=== PATIENT | male | born 1935 | race Caucasian/White ===

== ENCOUNTER 2021-03-15 11:44 | Emergency (ER) | payer MEDICAID, MEDICARE ==
[2021-03-15] MEDS ORDERED: Fentanyl 100 MCG/2 ML VIAL ONE (12:50)
== END 2021-03-15 16:36 | disposition home or self-care (01) ==
LOC: CSHERS 11:44
DX: M51.26 Other intervertebral disc displacement, lumbar region (principal); E78.5 Hyperlipidemia, unspecified; Z87.891 Personal history of nicotine dependence
CPT/HCPCS: 72131; 96372; J3010

== ENCOUNTER 2021-05-06 12:33 | Inpatient (IN) | payer MEDICARE, MEDICAID ==
[2021-05-06 13:20] LABS: Actual Bicarbonate (HCO3v) 23 mEq/L (22-28); Base Excess 0.1 mEq/L (-2.0 to +3.0); Calcium, Ionized (venous) 1.13 mmol/L (1.16-1.32); Chloride (VBG) 104 mmol/L (98-106); Hemoglobin (Hb) 18.2 g/dL (12.6-17.4); Potassium (VBG) 4.11 mmol/L (3.70-5.30); Puncture Site Other Site; Sodium 129.2 mmol/L (133-146); pH (venous) 7.45 (7.32-7.43)
[2021-05-06 13:26] LABS: Hemoglobin 17.1 g/dL (13.5-17.5); MDiff Complete? YES; Mean Corpuscular HGB CONC 32.8 g/dL (32.0-36.0); Mean Corpuscular Hemoglobin 30.9 pg (27.0-33.0); Mean Corpuscular Volume 94.2 fl (81.2-95.1); Mean Platelet Volume 10.2 fl (7.4-10.4); Platelet Count 144 10x3/uL (150-450); RBC Distribution Width 13.7 % (11.5-14.5); Red Blood Cell (RBC) Count 5.54 10x6/uL (4.32-5.72); White Blood Cell (WBC) Count 8.2 10x3/uL (3.5-10.5)
[2021-05-06 13:38] LABS: ALT (SGPT) 24 U/L (8-55); AST (SGOT) 30 U/L (5-34); Albumin 3.6 g/dL (3.4-4.8); Alkaline Phosphatase 98 U/L (40-110); Anion Gap 16 mmol/L (10-20); BUN (Urea Nitrogen) 21 mg/dL (8.4-25.7); Bilirubin, Total 1.4 mg/dL (0.2-1.2); CK (CPK) 17 U/L (30-200); Calc. Creatinine Clearance 0 mL/min (70-130); Calcium 9.2 mg/dL (7.8-10.44); Carbon Dioxide 22 mmol/L (23-31); Chloride 107 mmol/L (98-107); Globulin 3.6 g/dL (2.4-3.5); Glucose 129 mg/dL (83-110); Lipase 13 U/L (8-78); Magnesium 2.1 mg/dL (1.6-2.6); Potassium 4.2 mmol/L (3.5-5.1); Protein, Total 7.2 g/dL (5.8-8.1); Sodium 141 mmol/L (136-145)
[2021-05-06 13:56] LABS: Band 1 % (5-11); Lymphocytes 14 % (21-51); Monocytes 22 % (0-10); Neutrophil 60 % (42-75); Reactive Lymphocytes 3 % (0-10)
[2021-05-06 13:57] LABS: Platelet Morphology Comment Appears Adequate
[2021-05-06 15:15] LABS: SARS-CoV-2 NAA Rapid Test Not Detected (NotDetected)
[2021-05-06 15:52] LABS: Bilirubin Neg (Negative); Blood, Urine 250 (Negative); Clarity Cloudy (Clear); Glucose, Urine (Dipstick) Normal (Negative); Ketone, Urine 5 mg/dL (Negative); Leukocyte 500 (Negative); Nitrite Positive (Negative); Protein, Urine (Dipstick) 100 mg/dl (Neg-Trace); Urobilinogen Normal mg/dL (Less than 2)
[2021-05-06 16:01] LABS: WBC/HPF Greater Than 50 HPF (0-3)
[2021-05-06 16:03] LABS: Bacteria/HPF 3+ HPF (None Seen); Squamous Epithelial 0-3 HPF (0-3); Transitional Epithelial 0-3 HPF (None Seen)
[2021-05-06] MEDS ORDERED: cefTRIAXone\\ROCEPHIN 1 GM VIAL ONE (16:36)
[2021-05-06] MEDS ORDERED: Senokot S 8.6-50 MG TAB PO PRN (18:45)
[2021-05-06] MEDS ORDERED: Ondansetron ODT 4 MG TAB PO PRN (18:45)
[2021-05-06] MEDS ORDERED: hydrALAZINE 20 MG/ML VIAL SLOW IVP PRN (18:55)
[2021-05-06] MEDS ORDERED: Electrolyte Replacement Protocol FS PRN (19:00)
[2021-05-06] MEDS: Donepezil HCl 5 MG TAB PO SCH ×2 (22:00→22:21)
[2021-05-06] MEDS: Enoxaparin Sodium 40 MG/0.4 ML SYRINGE SC SCH (22:00)
[2021-05-06] MEDS: Tamsulosin HCl 0.4 MG CAP PO SCH ×2 (22:00→22:21)
[2021-05-06] MEDS: Divalproex Sodium 125 mg Sprinkle Capsule PO SCH ×2 (22:00→22:18)
[2021-05-07 03:59] LABS: #Eosinphils 0.2 10x3/uL (0.0-0.5); #Monocytes 1.3 10x3/uL (0.0-1.1); #Neutrophils 6.5 10x3/uL (1.5-8.4); %Basophils 0.4 % (0.0-2.0); %Eosinophils 1.9 % (0.0-6.0); %Lymphocytes 11.8 % (18.0-47.0); %Monocytes 14.1 % (0.0-10.0); %Neutrophils 70.8 % (40.0-75.0); Hemoglobin 16.2 g/dL (13.5-17.5); Mean Corpuscular HGB CONC 32.3 g/dL (32.0-36.0); Mean Corpuscular Hemoglobin 30.7 pg (27.0-33.0); Mean Corpuscular Volume 95.1 fl (81.2-95.1); Mean Platelet Volume 10.6 fl (7.4-10.4); Platelet Count 144 10x3/uL (150-450); RBC Distribution Width 13.3 % (11.5-14.5); Red Blood Cell (RBC) Count 5.28 10x6/uL (4.32-5.72); White Blood Cell (WBC) Count 9.2 10x3/uL (3.5-10.5)
[2021-05-07 04:24] LABS: Anion Gap 18 mmol/L (10-20); BUN (Urea Nitrogen) 22 mg/dL (8.4-25.7); Calc. Creatinine Clearance 0 mL/min (70-130); Carbon Dioxide 22 mmol/L (23-31); Chloride 107 mmol/L (98-107); Glucose 125 mg/dL (83-110); Magnesium 2.1 mg/dL (1.6-2.6); Sodium 143 mmol/L (136-145)
[2021-05-07 04:44] VITALS: BMI 30.4
[2021-05-07] MEDS ORDERED: FLU VACC QS2021-22(65YR UP)/PF 240 MCG/0.7 ML SYRINGE IM ONE (05:00)
[2021-05-07] MEDS ORDERED: Sodium Chloride 0.9% 1,000 ML IV SCH (08:30)
[2021-05-07] MEDS: Venlafaxine HCl XR 75 MG CAP PO SCH (09:51)
[2021-05-07] MEDS: Finasteride 5 MG TAB PO SCH (09:51)
[2021-05-07] MEDS: FLUoxetine HCl 20 MG CAP PO SCH (09:51)
[2021-05-07] MEDS: Divalproex Sodium 125 mg Sprinkle Capsule PO SCH ×2 (09:52→20:11)
[2021-05-07] MEDS: Acetaminophen 325 MG TAB PO PRN ×2 (10:34→20:11)
[2021-05-07] MEDS: cefTRIAXone\\ROCEPHIN 1 GM in Sodium Chloride 0.9% 100 ML IVPB SCH (14:29)
[2021-05-07] MEDS ORDERED: Enoxaparin Sodium 40 MG/0.4 ML SYRINGE ONE (19:54)
[2021-05-07] MEDS: Enoxaparin Sodium 40 MG/0.4 ML SYRINGE SC SCH (20:11)
[2021-05-07] MEDS: Tamsulosin HCl 0.4 MG CAP PO SCH (20:11)
[2021-05-07] MEDS: Donepezil HCl 5 MG TAB PO SCH (20:11)
[2021-05-08 03:21] LABS: #Eosinphils 1.3 10x3/uL (0.0-0.5); #Monocytes 1.3 10x3/uL (0.0-1.1); #Neutrophils 10.6 10x3/uL (1.5-8.4); %Basophils 0.3 % (0.0-2.0); %Eosinophils 8.4 % (0.0-6.0); %Lymphocytes 11.1 % (18.0-47.0); %Monocytes 8.6 % (0.0-10.0); Mean Corpuscular HGB CONC 32.5 g/dL (32.0-36.0); Mean Corpuscular Hemoglobin 30.8 pg (27.0-33.0); Mean Corpuscular Volume 94.8 fl (81.2-95.1); Mean Platelet Volume 10.3 fl (7.4-10.4); Platelet Count 156 10x3/uL (150-450); RBC Distribution Width 13.7 % (11.5-14.5); White Blood Cell (WBC) Count 14.9 10x3/uL (3.5-10.5)
[2021-05-08 04:44] LABS: Anion Gap 15 mmol/L (10-20); BUN (Urea Nitrogen) 25 mg/dL (8.4-25.7); Calc. Creatinine Clearance 64 mL/min (70-130); Calcium 8.8 mg/dL (7.8-10.44); Carbon Dioxide 23 mmol/L (23-31); Chloride 109 mmol/L (98-107); Glucose 113 mg/dL (83-110); Potassium 3.5 mmol/L (3.5-5.1); Sodium 143 mmol/L (136-145)
[2021-05-08] MEDS ORDERED: Potassium Chloride 20 MEQ TAB PO SCH (05:15)
[2021-05-08] MEDS: Divalproex Sodium 125 mg Sprinkle Capsule PO SCH ×2 (10:11→20:55)
[2021-05-08] MEDS: Finasteride 5 MG TAB PO SCH (10:12)
[2021-05-08] MEDS: FLUoxetine HCl 20 MG CAP PO SCH (10:12)
[2021-05-08] MEDS: Venlafaxine HCl XR 75 MG CAP PO SCH (10:12)
[2021-05-08] MEDS ORDERED: Pantoprazole 40 MG GRANULES PACKET PER TUBE SCH (12:00)
[2021-05-08 12:40] LABS: Potassium 3.9 mmol/L (3.5-5.1)
[2021-05-08] MEDS: cefTRIAXone\\ROCEPHIN 1 GM in Sodium Chloride 0.9% 100 ML IVPB SCH (14:41)
[2021-05-08] MEDS: Tamsulosin HCl 0.4 MG CAP PO SCH (20:55)
[2021-05-08] MEDS: Donepezil HCl 5 MG TAB PO SCH (20:55)
[2021-05-08] MEDS: Enoxaparin Sodium 40 MG/0.4 ML SYRINGE SC SCH (20:59)
[2021-05-09 04:12] LABS: #Basophils 0.1 10x3/uL (0.0-0.2); #Eosinphils 1.6 10x3/uL (0.0-0.5); #Monocytes 0.9 10x3/uL (0.0-1.1); #Neutrophils 8.1 10x3/uL (1.5-8.4); %Basophils 0.5 % (0.0-2.0); %Eosinophils 12.5 % (0.0-6.0); %Lymphocytes 13.9 % (18.0-47.0); %Monocytes 7.4 % (0.0-10.0); %Neutrophils 64.9 % (40.0-75.0); Hemoglobin 15.4 g/dL (13.5-17.5); Mean Corpuscular HGB CONC 32.1 g/dL (32.0-36.0); Mean Corpuscular Hemoglobin 30.5 pg (27.0-33.0); Mean Platelet Volume 10.5 fl (7.4-10.4); Platelet Count 165 10x3/uL (150-450); RBC Distribution Width 13.6 % (11.5-14.5); Red Blood Cell (RBC) Count 5.05 10x6/uL (4.32-5.72); White Blood Cell (WBC) Count 12.4 10x3/uL (3.5-10.5)
[2021-05-09 04:19] LABS: Anion Gap 14 mmol/L (10-20); BUN (Urea Nitrogen) 25 mg/dL (8.4-25.7); Calc. Creatinine Clearance 65 mL/min (70-130); Calcium 8.7 mg/dL (7.8-10.44); Carbon Dioxide 24 mmol/L (23-31); Chloride 110 mmol/L (98-107); Glucose 112 mg/dL (83-110); Potassium 3.6 mmol/L (3.5-5.1); Sodium 144 mmol/L (136-145)
[2021-05-09] MEDS: FLUoxetine HCl 20 MG CAP PO SCH (09:38)
[2021-05-09] MEDS: Finasteride 5 MG TAB PO SCH (09:38)
[2021-05-09] MEDS: Pantoprazole 40 MG GRANULES PACKET PER TUBE SCH (09:38)
[2021-05-09] MEDS: Divalproex Sodium 125 mg Sprinkle Capsule PO SCH ×2 (09:38→20:15)
[2021-05-09] MEDS: Venlafaxine HCl XR 75 MG CAP PO SCH (09:38)
[2021-05-09] MEDS: cefTRIAXone\\ROCEPHIN 1 GM in Sodium Chloride 0.9% 100 ML IVPB SCH (13:44)
[2021-05-09] MEDS: Donepezil HCl 5 MG TAB PO SCH (20:15)
[2021-05-09] MEDS: Tamsulosin HCl 0.4 MG CAP PO SCH (20:15)
[2021-05-09] MEDS: Enoxaparin Sodium 40 MG/0.4 ML SYRINGE SC SCH (20:15)
[2021-05-10 05:16] LABS: #Basophils 0.1 10x3/uL (0.0-0.2); #Eosinphils 1.6 10x3/uL (0.0-0.5); #Monocytes 0.7 10x3/uL (0.0-1.1); #Neutrophils 7.3 10x3/uL (1.5-8.4); %Basophils 0.6 % (0.0-2.0); %Eosinophils 14.2 % (0.0-6.0); %Lymphocytes 14.3 % (18.0-47.0); %Monocytes 5.9 % (0.0-10.0); %Neutrophils 63.7 % (40.0-75.0); Hemoglobin 15.7 g/dL (13.5-17.5); Mean Corpuscular HGB CONC 32.8 g/dL (32.0-36.0); Mean Corpuscular Hemoglobin 30.7 pg (27.0-33.0); Mean Corpuscular Volume 93.6 fl (81.2-95.1); Mean Platelet Volume 10.4 fl (7.4-10.4); Platelet Count 193 10x3/uL (150-450); RBC Distribution Width 13.5 % (11.5-14.5); Red Blood Cell (RBC) Count 5.12 10x6/uL (4.32-5.72); White Blood Cell (WBC) Count 11.5 10x3/uL (3.5-10.5)
[2021-05-10 05:28] LABS: Anion Gap 13 mmol/L (10-20); BUN (Urea Nitrogen) 27 mg/dL (8.4-25.7); Calc. Creatinine Clearance 76 mL/min (70-130); Calcium 8.8 mg/dL (7.8-10.44); Carbon Dioxide 23 mmol/L (23-31); Chloride 110 mmol/L (98-107); Glucose 109 mg/dL (83-110); Potassium 3.2 mmol/L (3.5-5.1); Sodium 143 mmol/L (136-145)
[2021-05-10] MEDS ORDERED: Potassium Chloride 20 MEQ TAB PO SCH (06:00)
[2021-05-10] MEDS: FLUoxetine HCl 20 MG CAP PO SCH (09:19)
[2021-05-10] MEDS: Divalproex Sodium 125 mg Sprinkle Capsule PO SCH (09:19)
[2021-05-10] MEDS: Pantoprazole 40 MG GRANULES PACKET PER TUBE SCH (09:20)
[2021-05-10] MEDS: Finasteride 5 MG TAB PO SCH (09:20)
[2021-05-10] MEDS: Venlafaxine HCl XR 75 MG CAP PO SCH (09:20)
[2021-05-10] MEDS: cefTRIAXone\\ROCEPHIN 1 GM in Sodium Chloride 0.9% 100 ML IVPB SCH (14:57)
[2021-05-10 18:09] VITALS: BP 104/59; TEMP 98.5
== END 2021-05-10 19:02 | DRG 689 ==
LOC: CSHERS 12:33 → CSHTELE 19:04 → OBSVTOIN 05-07 08:27
PROVIDERS: ADMIT Family Medicine; ATTEND Internal Medicine
DX: N30.00 Acute cystitis without hematuria (principal); G93.41 Metabolic encephalopathy; F01.51 Vascular dementia, unspecified severity, with behavioral disturbance; I10 Essential (primary) hypertension; E78.5 Hyperlipidemia, unspecified; F41.9 Anxiety disorder, unspecified; N40.0 Benign prostatic hyperplasia without lower urinary tract symptoms; K21.9 Gastro-esophageal reflux disease without esophagitis; D50.9 Iron deficiency anemia, unspecified; F32.A Depression, unspecified; Z20.822 Contact with and (suspected) exposure to COVID-19; E86.0 Dehydration; B96.20 Unspecified Escherichia coli [E. coli] as the cause of diseases classified elsewhere; Z66 Do not resuscitate; Z86.73 Personal history of transient ischemic attack (TIA), and cerebral infarction without residual deficits; Z90.49 Acquired absence of other specified parts of digestive tract; Z87.891 Personal history of nicotine dependence; Z79.899 Other long term (current) drug therapy
CPT/HCPCS: 36415; 36416; 71045; 80048; 80053; 81003; 81015; 82550; 82805; 83605; 83690; 83735; 83880; 84443; 84484; 85025; 87040; 87077; 87086; 87186; 93005; 94760; J0696; J1650; J3490; J7050; U0002

== ENCOUNTER 2021-05-23 16:24 | Emergency (ER) | payer MEDICARE, MEDICAID | END 2021-05-23 18:31 | disposition home or self-care (01) | LOC: CSHERS 16:24 | DX: S00.81XA Abrasion of other part of head, initial encounter (principal); N40.0 Benign prostatic hyperplasia without lower urinary tract symptoms; E78.5 Hyperlipidemia, unspecified; Z87.891 Personal history of nicotine dependence; W06.XXXA Fall from bed, initial encounter | CPT/HCPCS: 70450 ==